=== PATIENT | male | born 2000 | race Two or more races ===

== ENCOUNTER 2024-12-24 03:16 | Emergency (ER) | payer OTHER ==
[~2024-12-24] VITALS: Ht 172.7 cm; Wt 63.5 kg
[2024-12-24] MEDS ORDERED: CEFAZOLIN SODIUM 1,000 MG VIAL IM STA (04:35)
[2024-12-24] MEDS ORDERED: TETANUS & DIPHTHERIA TOX,ADULT 0.5 ML VIAL IM STA (04:35)
== END 2024-12-24 05:52 | disposition home or self-care (01) ==
LOC: ER 03:16
DX: S61.223A Laceration with foreign body of left middle finger without damage to nail, initial encounter (principal); W45.8XXA Other foreign body or object entering through skin, initial encounter; Y93.89 Activity, other specified; Y92.89 Other specified places as the place of occurrence of the external cause
CPT/HCPCS: 12001; 90471; 90714; J1670

== ENCOUNTER → 2024-12-25 | Emergency (ER) | payer OTHER ==
[~2024-12-25] VITALS: Ht 172.7 cm; Wt 63.5 kg
== END | disposition left against medical advice (07) ==
LOC: ER 02:58
DX: Z53.21 Procedure and treatment not carried out due to patient leaving prior to being seen by health care provider (principal)